=== PATIENT | male | born 1950 | race Caucasian/White ===

== ENCOUNTER 2018-10-10 10:00 | Outpatient (RCR) | payer MEDICARE, OTHER, SELFPAY | END 2018-11-07 14:00 | disposition home or self-care (01) | LOC: PT.CARL 10:00 | PROVIDERS: PCP Family Medicine; Visit Provider Neurological Surgery | DX: M51.16 Intervertebral disc disorders with radiculopathy, lumbar region (principal) | CPT/HCPCS: 97012; 97014; 97110; 97140; 97163; G0283 ==